=== PATIENT | female | born 1985 | race African-American/Black ===

== ENCOUNTER 2016-11-14 07:51 | Emergency (ER) | payer OTHER ==
[2016-11-14 08:41] LABS: URINE SOURCE CLEAN CATCH
[2016-11-14 08:51] LABS: URINE APPEARANCE CLOUDY; URINE BILIRUBIN NEG (NEG); URINE BLOOD 2+ (NEG); URINE COLOR DK YELLOW; URINE GLUCOSE NEG (NEG); URINE KETONE TRACE (NEG); URINE LEUKOCYTE ESTERASE TRACE (NEG); URINE NITRATE NEG (NEG); URINE PROTEIN NEG (NEG); URINE SPECIFIC GRAVITY 1.029 (1.003-1.035)
[2016-11-14 08:54] LABS: CULTURE INDICATED? YES; URINE BACTERIA AUWI 1+ (NEGATIVE); URINE SQUAMOUS EPITHELIAL CELL MOD /[HPF]
[2016-11-14 09:04] LABS: URINE MUCUS PRESENT
[2016-11-16 19:56] LABS: CHLAMYDIA TRACH Not Detected (Not Detected); N GONOR Not Detected (Not Detected)
== END 2016-11-14 10:24 | disposition home or self-care (01) ==
LOC: CED 07:51
PROVIDERS: Nurse Practitioner Family
DX: N76.0 Acute vaginitis (principal); F17.210 Nicotine dependence, cigarettes, uncomplicated; Z98.890 Other specified postprocedural states; Z90.721 Acquired absence of ovaries, unilateral
CPT/HCPCS: 81003; 87086; 87491; 87591; 87808; 87905; 99284